=== PATIENT | female | born 1965 | race Caucasian/White ===

== ENCOUNTER → 2020-11-19 | Outpatient (CLI) | payer BC | END | disposition home or self-care (01) | LOC: LABWHC1 13:27 | PROVIDERS: ATTEND Psychiatry & Neurology Neurology | DX: Z01.812 Encounter for preprocedural laboratory examination (principal); Z20.822 Contact with and (suspected) exposure to COVID-19 | CPT/HCPCS: U0003; C9803; U0005 ==

== ENCOUNTER → 2021-04-19 | Outpatient (CLI) | payer MEDICARE ==
[2021-04-19 10:25] VITALS: BP 104/71; PULSE 69; RESP 16; TEMP 97.8
--- NOTE | 2021-04-19 11:10 | P.GSHP ---
History of Present Illness H&P Date: 04/19/21 Chief Complaint: implant rupture Regina is a 55 year old white female seen in consultation for Dr. Bowman regarding a right breast implant rupture. The patient had bilateral subpectoral silicone implants placed in [address] Schlutz. These were placed after her children. She initially had a breast lift, then had the implants placed approximately 8 years later. The patient states the left implant seemed to be lower. She is complaining of pain in the breast; skin sensitivity. She complains of pain in her upper back and wondering if it is related to the implants. She states it is very difficult to find any close distress secondary to the asymmetry of her breast. She saw her plastic surgeon who considered taking them out and replacing them. She has no history of any trauma or infection in her breast. She is not complaining of any lumps within her breast. Patient was diagnosed with fibromyalgia approximately 2 years ago, she wonders if this may be related to leaking breast implants. Caffeine: none nicotine: none, stopped 1987 chocolate: occasional hormones: none Family history: none Hormonal History: menarche: 15 , breast fed: no, age at first : 28 menopause: hysterectomy partial 43, done for bleeding BCP: 3 years hormones: none Surgical history: 1. Partial hysterectomy 2. Gastric Bypass lost 110 pounds 3. gallbladder 4. fusion 2016 of lower back 5. back stimulator for pain Medical history: 1. Thoracic back pain 2. 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 Social History: nicotine: none alcohol: wine twice a week drugs: none - Constitutional Constitutional: Denies chills, Denies fever - EENT Eyes: denies blurred vision, denies pain Ears: deny: decreased hearing, tinnitus Ears, nose, mouth and throat: Denies headache, Denies sore throat - Breasts Breasts: bilateral: as per HPI - Cardiovascular Cardiovascular: Denies chest pain, Denies shortness of breath - Respiratory Respiratory: Denies cough, Denies 7 - Gastrointestinal Gastrointestinal: Denies abdominal pain, Denies diarrhea, Denies nausea, Denies vomiting - Genitourinary (Female) Genitourinary: Denies dysuria, Denies hematuria - Menstruation Menstruation: Reports post hysterectomy - Musculoskeletal Comment: fibromyalgia Musculoskeletal: Reports as per HPI - Integumentary Integumentary: Denies pruritus, Denies rash - Neurological Neurological: Reports numbness, Reports weakness - Psychiatric Psychiatric: Denies anxiety, Denies depression - Endocrine Endocrine: Reports weight change, Denies fatigue - Hematologic/Lymphatic Comment: none - Allergic/Immunologic Allergic/Immunologic: Reports seasonal allergies Past Medical History History of Any Multi-Drug Resistant Organisms: None Reported Smoking Status: Former smoker Medications and Allergies Home Medications Medication Instructions Recorded Confirmed Type Dextroamphetamine/Amphetamine 5 mg PO DAILY PRN 04/19/21 04/19/21 History [Adderall] Dextroamphetamine/Amphetamine 30 mg PO DAILY 04/19/21 04/19/21 History [Adderall] oxyCODONE-APAP 10-325MG [Percocet 1 tab PO Q6HR PRN 04/19/21 04/19/21 History 10-325 mg] Allergies Allergy/AdvReac Type Severity Reaction Status Date / Time No Known Allergies Allergy Unverified 04/19/21 10:25 Surgical - Exam Vital Signs Temp Pulse Resp BP Pulse Ox 97.8 F 69 16 104/71 95 04/19/21 10:21 04/19/21 10:21 04/19/21 10:21 04/19/21 10:21 04/19/21 10:21 BMI 24.3 - General moderate distress - Eyes normal ocular movement - ENT no hearing loss, no congestion - Neck no masses, trachea midline - Respiratory normal respiratory effort, clear to auscultation - Cardiovascular Rhythm: regular Heart Sounds: normal: S1, S2 - Abdomen Abdomen: soft, non tender, no guarding, no rigid, no rebound - Integumentary normal turgor - Neurologic no disoriented, no combative - Psychiatric oriented to time, oriented to person, oriented to place, speech is normal, memory intact Breast Exam: BRA: 40C inspection: Right breast implant markedly higher than left breast implant/asymmetry of the breast related to probable left breast implant rupture Palpation: Right breast: Implant higher than left implant, multiple positional exam of the breast no dominant masses or nodules of concern Right axilla: No adenopathy of concern Left breast: No dominant masses or nodules of concern, implant not well palpated Left axilla: No adenopathy of concern Results Mammogram reviewed with Dr. Garcia from radiology, concern about right breast implant rupture Report from [facility] on revealed that the patient had undergone bilateral mammogram as well as ultrasound of the breast. In addition a computed tomography scan had been done and the report states that at least intracapsular rupture on the right was identified. The breast tissue was felt to be somewhat more difficult to evaluate secondary to the implants. Bilateral breast ultrasound revealed snowstorm appearance consistent with intracapsular rupture on the right, on the left implant demonstrated multiple echogenic lines anteriorly within the implant also consistent with intracapsular rupture No evidence of bilateral extra silicone outside of the implants. Assessment and Plan Assessment: Impression: 1. bilateral breast implants/ ? rupture 2. Asymmetry of the implants 3. Back stimulator in place question the patient may be able to have an MRI 4. Patient's last mammogram was approximately 1 year ago Plan: 1. Bilateral breast MRI if able to do secondary to the back implant stimulator 2. Patient would like to have the implants removed without any replaced 3. back pain was suitable related to the weight of the implants 4. Fairly recent diagnosis of fibromyalgia 5. Marked asymmetry of the breast related to left breast implant being lower than the right, this results in anxiety for the patient and inability to find close to fat Addendum: I have discussed breast MRI with Dr. Garcia from radiology at this point we are going to proceed with bilateral mammograms and possible CT of the chest to evaluate possible rupture. We will also obtain the CT films from [facility] from last year. Cc: Dr. Bowman
== END ==
LOC: WWCWWP 10:08
PROVIDERS: ATTEND Surgery
DX: N65.1 Disproportion of reconstructed breast (principal); M79.7 Fibromyalgia; N64.4 Mastodynia; Z87.891 Personal history of nicotine dependence; Z96.82 Presence of neurostimulator

== ENCOUNTER → 2021-05-15 | Outpatient (CLI) | payer MEDICARE ==
--- NOTE | 2021-05-15 11:02 | MM ---
Reason for exam: additional evaluation requested from prior study. Last mammogram was performed 1 year ago. History: Pre-pectoral silicone gel implants in both breasts, 2010. Took hormonal contraceptives for 6 years beginning at age 19. Physical Findings: Nurse did not find any significant physical abnormalities on exam. MG 3D Diag Mammo Imp W/Cad MALLORY Bilateral CC, MLO, and ID view(s) were taken. Prior study comparison: May 14, 2020, bilateral mammogram. There are scattered fibroglandular densities. Bilateral retropectoral silicone implants. Mammographically, they appear intact. No significant new findings when compared with previous films. These results were verbally communicated with the patient and result sheet given to the patient on 05/15/21. ASSESSMENT: Incomplete: need additional imaging evaluation, BI-RAD 0 RECOMMENDATION: Ultrasound of both breasts. (as ordered)
--- NOTE | 2021-05-15 11:04 | USB ---
Reason for exam: additional evaluation requested from abnormal screening. History: Pre-pectoral silicone gel implants in both breasts, 2010. Took hormonal contraceptives for 6 years beginning at age 19. US Breast BILAT Right complete breast ultrasound includes all four quadrants, the retroareolar region and axilla. Finding demonstrates no cystic or solid lesion seen. The right implant is heterogeneous with septations. We suspect an intracapsular rupture. No free silicone in seen. Left complete breast ultrasound includes all four quadrants, the retroareolar region and axilla. Finding demonstrates no cystic or solid lesion seen. These results were verbally communicated with the patient and result sheet given to the patient on 05/15/21. ASSESSMENT: Benign, BI-RAD 2 RECOMMENDATION: Follow-up diagnostic mammogram of both breasts in 1 year. Manage on a clinical basis with regard to any potential right intracapsular implant rupture.
== END | disposition home or self-care (01) ==
LOC: RADMAMWWP 09:09
PROVIDERS: ATTEND Surgery
DX: R92.8 Other abnormal and inconclusive findings on diagnostic imaging of breast (principal)
CPT/HCPCS: 77066; 76641; G0279; 77062

== ENCOUNTER → 2021-06-24 | Outpatient (CLI) | payer MEDICARE | END | disposition home or self-care (01) | LOC: LABWHC1 11:47 | PROVIDERS: ATTEND Psychiatry & Neurology Neurology | DX: Z01.812 Encounter for preprocedural laboratory examination (principal); Z20.822 Contact with and (suspected) exposure to COVID-19 | CPT/HCPCS: U0003; C9803 ==

== ENCOUNTER → 2021-07-04 | Outpatient (CLI) | payer MEDICARE ==
[2021-07-04 09:37] VITALS: BP 118/76; PULSE 111; RESP 20; TEMP 98.1
--- NOTE | 2021-07-04 09:51 | P.PN ---
Subjective Progress Note Date: 07/04/21 Principal diagnosis: implant rupture Regina is a 55 year old white female seen in consultation for Dr. Bowman regarding a right breast implant rupture. The patient had bilateral subpectoral silicone implants placed in [address] Schultz. These were placed after her children. She initially had a breast lift, then had the implants placed approximately 8 years later. The patient states the left implant seemed to be lower. She is complaining of pain in the breast; skin sensitivity. She complains of pain in her upper back and wondering if it is related to the implants. She states it is very difficult to find any close distress secondary to the asymmetry of her breast. She saw her plastic surgeon who considered taking them out and replacing them. She has no history of any trauma or infection in her breast. She is not complaining of any lumps within her breast. She had a bilateral mammogram on 05-15-21 and bilateral ultrasound was recommended. This showed the right implant heterogeneous with septations. An intracapsular rupture was suspected. No rupture was noted in the left implant. No parenchymal lesions of the breast were seen on the mammogram. Patient was diagnosed with fibromyalgia approximately 2 years ago, she wonders if this may be related to leaking breast implants. Caffeine: none nicotine: none, stopped 1987 chocolate: occasional hormones: none Family history: none Hormonal History: menarche: 15 , breast fed: no, age at first : 28 menopause: hysterectomy partial 43, done for bleeding BCP: 3 years hormones: none Surgical history: 1. Partial hysterectomy 2. Gastric Bypass lost 110 pounds 3. gallbladder 4. fusion 2016 of lower back 5. back stimulator for pain 6. wires in spinal transmitter replaced Medical history: 1. Thoracic back pain 2. 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 Social History: nicotine: none alcohol: wine twice a week drugs: none - Constitutional Constitutional: Denies chills, Denies fever - EENT Eyes: denies blurred vision, denies pain Ears: deny: decreased hearing, tinnitus Ears, nose, mouth and throat: Denies headache, Denies sore throat - Breasts Breasts: bilateral: as per HPI - Cardiovascular Cardiovascular: Denies chest pain, Denies shortness of breath - Respiratory Respiratory: Denies cough - Gastrointestinal Gastrointestinal: Denies abdominal pain, Denies diarrhea, Denies nausea, Denies vomiting - Genitourinary (Female) Genitourinary: Denies dysuria, Denies hematuria - Menstruation Menstruation: Reports post hysterectomy - Musculoskeletal Comment: fibromyalgia Musculoskeletal: Reports as per HPI - Integumentary Integumentary: Denies pruritus, Denies rash - Neurological Neurological: Reports numbness, Reports weakness - Psychiatric Psychiatric: Denies anxiety, Denies depression - Endocrine Endocrine: Reports weight change, Denies fatigue - Hematologic/Lymphatic Comment: none - Allergic/Immunologic Allergic/Immunologic: Reports seasonal allergies Objective - Constitutional General appearance: Present: cooperative - EENT Eyes: Present: EOMI ENT: Present: hearing grossly normal - Neck Neck: Present: normal ROM - Respiratory Respiratory: bilateral: CTA - Cardiovascular Rhythm: regular Heart sounds: normal: S1, S2 - Musculoskeletal Musculoskeletal: Present: gait normal - Psychiatric Psychiatric: Present: A&O x's 3, appropriate affect, intact judgment & insight - Additional findings Additional findings: Breast examination: Block: 40 mL Inspection: Right breast implant markedly higher than left implant/asymmetry of the breast related to probable implant rupture Palpation: Right breast: Implant higher than left, multiple positional exam no dominant masses or nodules of concern Right axilla: No adenopathy of concern Left breast dominant masses or nodules of concern implant not well palpated Left axilla: No adenopathy of concern Report from [place] on [id number] revealed that the patient had undergone bilateral mammogram as well as ultrasound of the breast. In addition a CAT scan had been done and the report stated that at least intracapsular rupture on the right was identified. The breast tissue was felt to be somewhat more difficult to evaluate secondary to the implants. Bilateral breast ultrasound revealed snowstorm appearance consistent with intracapsular rupture on the right, on the left implant demonstrated multiple echogenic lines anteriorly within the implant also consistent with intracapsular rupture. Assessment and Plan Assessment: Impression: 1. Bilateral implants with rupture of the leg demonstrated on most recent ult rasound, probable rupture of the left based on prior radiographic studies 2. Asymmetry of the implants 3. Back stimulator in place the patient had recent wires changed 4. Bilateral mammogram no parenchymal lesions of the breast Plan: 1. Removal of bilateral breast implants, removal of bilateral implant capsules 2. Patient is not interested in breast reconstruction 3. Marked asymmetry of the implants causing psychologic distress for the patient and making difficulty to find clothes that fit properly 4. Back pain which may be related to the weight of the implants 5. Fibromyalgia which may be related to the implants Risks and benefits of the procedure discussed with the patient. Risks include but are not limited to bleeding, infection, reaction to the anesthetic. The patient understands that she may have some decreased sensation to the nipple areolar complex bilateral. She understands this may or may not help with her back pain and may or may not help with her fibromyalgia. She wishes to proceed. CC: Dr. Bowman
== END ==
LOC: WWCWWP 09:25
PROVIDERS: ATTEND Surgery
DX: T85.49XA Other mechanical complication of breast prosthesis and implant, initial encounter (principal); Z98.84 Bariatric surgery status

== ENCOUNTER → 2021-09-06 | Outpatient (CLI) | payer MEDICARE ==
[2021-09-06 14:16] VITALS: BP 107/70; PULSE 90; RESP 16; TEMP 98.1
--- NOTE | 2021-09-06 14:38 | P.PN ---
Subjective Progress Note Date: 09/06/21 Principal diagnosis: Implant rupture Regina is a 56 year old white female seen in consultation for Dr. Bowman regarding a right breast implant rupture. The patient had bilateral subpectoral silicone implants placed in [address] Schultz. These were placed after her children were born. She initially had a breast lift, then had the implants placed approximately 8 years later. The patient states the left implant seemed to be lower. She is complaining of pain in the breast; skin sensitivity. She complains of pain in her upper back and wondering if it is related to the implants. She states it is very difficult to find any clothes to fit well. She is distressed secondary to the asymmetry of her breast. She saw her plastic surgeon who considered taking them out and replacing them. She has no history of any trauma or infection in her breast. She is not complaining of any lumps within her breast. She had a bilateral mammogram on 05-15-21 and bilateral ultrasound was recommended. This showed the right implant heterogeneous with septations. An intracapsular rupture was suspected. No rupture was noted in the left implant. No parenchymal lesions of the breast were seen on the mammogram. Patient was diagnosed with fibromyalgia approximately 2 years ago, she wonders if this may be related to leaking breast implants. Caffeine: none nicotine: none, stopped 1987 chocolate: occasional hormones: none Family history: none Hormonal History: menarche: 15 , breast fed: no, age at first : 28 menopause: hysterectomy partial 43, done for bleeding BCP: 3 years hormones: none Surgical history: 1. Partial hysterectomy 2. Gastric Bypass lost 110 pounds 3. gallbladder 4. fusion 2016 of lower back 5. back stimulator for pain 6. 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 Thoracic back pain 2. 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 Social History: nicotine: none alcohol: wine twice a week drugs: none - Constitutional Constitutional: Denies chills, Denies fever - EENT Eyes: denies blurred vision, denies pain Ears: deny: decreased hearing, tinnitus Ears, nose, mouth and throat: Denies headache, Denies sore throat - Breasts Breasts: bilateral: as per HPI - Cardiovascular Cardiovascular: Denies chest pain, Denies shortness of breath - Respiratory Respiratory: Denies cough - Gastrointestinal Gastrointestinal: Denies abdominal pain, Denies diarrhea, Denies nausea, Denies vomiting - Genitourinary (Female) Genitourinary: Denies dysuria, Denies hematuria - Menstruation Menstruation: Reports post hysterectomy - Musculoskeletal Comment: fibromyalgia Musculoskeletal: Reports as per HPI - Integumentary Integumentary: Denies pruritus, Denies rash - Neurological Neurological: Reports numbness, Reports weakness - Psychiatric Psychiatric: Denies anxiety, Denies depression - Endocrine Endocrine: Reports weight change, Denies fatigue - Hematologic/Lymphatic Comment: none - Allergic/Immunologic Allergic/Immunologic: Reports seasonal allergies Objective - Vital Signs Vital signs: Vital Signs Temp 98.1 F 09/06/21 14:11 Pulse 90 09/06/21 14:11 Resp 16 09/06/21 14:11 BP 107/70 09/06/21 14:11 Pulse Ox Intake & Output 09/05/21 09/06/21 09/06/21 18:59 06:59 18:59 Weight 70.307 kg - Exam BMI 25 - Constitutional General appearance: Present: cooperative - EENT Eyes: Present: EOMI ENT: Present: hearing grossly normal - Neck Neck: Present: normal ROM - Respiratory Respiratory: bilateral: CTA - Cardiovascular Rhythm: regular Heart sounds: normal: S1, S2 - Gastrointestinal General gastrointestinal: Present: soft - Integumentary Integumentary: Present: normal turgor - Musculoskeletal Musculoskeletal: Present: gait normal - Psychiatric Psychiatric: Present: A&O x's 3, appropriate affect, intact judgment & insight - Additional findings Additional findings: Breast examination: Bra: 40D Inspection: Right breast implant markedly higher than left implant/asymmetry of the breast related to probable implant rupture Palpation: Right breast: Implant higher than left, multiple positional exam no dominant masses or nodules of concern Right axilla: No adenopathy of concern Left breast: no dominant masses or nodules of concern implant not well palpated Left axilla: No adenopathy [place] [id number] revealed that the patient had undergone bilateral mammogram as well as ultrasound of the breast. In addition a CAT scan had been done and the report stated that at least intracapsular rupture on the right was identified. The breast tissue was felt to be somewhat more difficult to evaluate secondary to the implants. Bilateral breast ultrasound revealed snowstorm appearance consistent with intracapsular rupture on the right, on the left implant demonstrated multiple echogenic lines anteriorly within the implant also consistent with intracapsular rupture. Assessment and Plan Assessment: Assessment and Plan Assessment: Impression: 1. Bilateral implants with rupture of the leg demonstrated on most recent ultrasound, probable rupture of the left based on prior radiographic studies 2. Asymmetry of the implants 3. Back stimulator in place the patient had recent wires changed 4. Bilateral mammogram no parenchymal lesions of the breast Plan: 1. Removal of bilateral breast implants, removal of bilateral implant capsules 2. Patient is not interested in breast reconstruction 3. Marked asymmetry of the implants causing psychologic distress for the patient and making difficulty to find clothes that fit properly 4. Back pain which may be related to the weight of the implants 5. Fibromyalgia which may be related to the implants 6. clearance from neurology Dr. Ochoa Risks and benefits of the procedure discussed with the patient. Risks include but are not limited to bleeding, infection, reaction to the anesthetic. The patient understands that she may have some decreased sensation to the nipple areolar complex bilateral. She understands this may or may not help with her back pain and may or may not help with her fibromyalgia. She also understands that she will continue to be asymmetric with the right breast being smaller than the left breast. She wishes to proceed. She did see a plastic surgeon and declined from having the plastic surgeon to the procedure. CC: Dr. Bowman Additional CC's:
== END ==
LOC: WWCWWP 14:05
PROVIDERS: ATTEND Surgery
DX: T85.41XA Breakdown (mechanical) of breast prosthesis and implant, initial encounter (principal); Z96.82 Presence of neurostimulator

== ENCOUNTER 2021-09-17 07:35 | Day surgery (SDC) | payer MEDICARE ==
[2021-09-11 12:06] VITALS: BMI 24.2
[~2021-09-17 07:35] MED LIST: DEXAMETHASONE SOD PHOSPHATE 4 MG/ML 1 ML VIAL IV ONE; HEPARIN SODIUM,PORCINE/PF 5,000 UNIT/0.5 ML SYRINGE SQ PRN; LACTATED RINGERS 1,000 ML IV SCH; ONDANSETRON 4 MG/2 ML VIAL IVP ONE; Pre Op ABX Message 1 EACH MISC MISCELLANE ONE
[2021-09-17] MEDS ORDERED: ROCURONIUM 10 MG/ML (5 ML VIAL) IV ONE (08:45)
[2021-09-17] MEDS ORDERED: GLYCOPYRROLATE 0.2 MG/ML 2 ML VIAL ONE (08:45)
[2021-09-17] MEDS ORDERED: SUCCINYLCHOLINE CHLORIDE 100 MG/5 ML SYR IV ONE (08:45)
[2021-09-17] MEDS ORDERED: fentaNYL (PF) 50 MCG/ML 2 ML AMP ONE (08:45)
[2021-09-17] MEDS ORDERED: MIDAZOLAM 2 MG/2 ML VIAL ONE (08:45)
[2021-09-17] MEDS ORDERED: PROPOFOL 10 MG/ML 20 ML VIAL IV ONE (08:45)
[2021-09-17] MEDS ORDERED: HYDROmorphone (PF) 1 MG/ML ONE (08:45)
[2021-09-17] MEDS ORDERED: LIDOCAINE 1% INJ 10MG/ML (20 ML MDV) ONE (08:45)
[2021-09-17] MEDS ORDERED: NEOSTIGMINE 1 MG/ML 10 ML VIAL ONE (08:45)
[2021-09-17] MEDS ORDERED: LACTATED RINGERS 1,000 ML IV ONE (11:23)
--- NOTE | 2021-09-17 11:31 | P.OP ---
Date of Procedure: 09/17/21 Preoperative Diagnosis: Ruptured subpectoral implant/asymmetry of the implants Postoperative Diagnosis: Same Procedure(s) Performed: Removal of bilateral breast implants/bilateral capsule removal Anesthesia: FREDIS Surgeon: Maliha García Estimated Blood Loss (ml): 35 IV fluids (ml): 900 Pathology: other (Removal of bilateral breast implants and capsules) Condition: stable Disposition: same day Indications for Procedure: Ruptured breast implant asymmetry of implants Operative Findings: Ruptured right breast implant/thickened capsule, bilateral implants and capsules Description of Procedure: The patient is a 56-year-old white female with symptomatic breast implants and felt to be rupture of one side. The patient wished for implant removal. The patient was brought to the operative suite. Following induction of anesthesia the right breast was approached initially. A prior reduction mammoplasty and the inferior limb of the incision was utilized. This was carried down through the subcutaneous tissue to the muscle. The muscle was spread and the capsule of the implant was identified. Dissection was performed of this capsule. The capsule was entered and there was gooey material which was present in the capsular space. It was felt that there is the most likely a rupture of the implant and this was contained within the capsule. Careful dissection was performed to remove the remainder of the capsule, as well as residual implant. The wound was well irrigated. Surgicel in powder form was placed. After we were assured that hemostasis was attained a ADALBERTO drain was placed. The deep tissues were closed using 3-0 Vicryl suture. The skin was reapproximated using 3-0 Vicryl suture followed by a 4-0 Monocryl. The drain was secured using a nylon Suture. The left side was approached. Gloves were changed. An incision was made in the vertical. This was carried down to the subcutaneous tissue to the muscle. This was in the capsule the implant was identified. Dissection was performed around the capsule. The capsule was entered at one point the implant on the left did not appear to have been ruptured and was extruded without difficulty. The capsule was then resected. The wound was well irrigated. Surgicel and pelvis was placed. A ADALBERTO drain was placed. Deep tissues were closed using 3-0 Vicryl suture. The skin was closed using a 4-0 Monocryl. This was followed by a nylon drain suture. The patient tolerated the procedure in stable condition. All instrument and sponge counts were correct at the end of the case.
--- NOTE | 2021-09-17 11:33 | P.DS ---
Providers Attending physician: Maliah García Primary care physician: Lana Bowman Plan - Discharge Summary Discharge Rx Participant: No New Discharge Prescriptions: No Action Dextroamphetamine/Amphetamine [Adderall] 30 mg PO DAILY oxyCODONE-APAP 10-325MG [Percocet 10-325 mg] 1 tab PO Q6HR PRN PRN Reason: Pain Ibuprofen [Motrin] 400 mg PO Q6HR PRN PRN Reason: Pain Dextroamphetamine/Amphetamine [Adderall] 5 mg PO DAILY PRN PRN Reason: Agitation Discharge Medication List Dextroamphetamine/Amphetamine [Adderall] 5 mg PO DAILY PRN 04/19/21 [History] Dextroamphetamine/Amphetamine [Adderall] 30 mg PO DAILY 04/19/21 [History] oxyCODONE-APAP 10-325MG [Percocet 10-325 mg] 1 tab PO Q6HR PRN 04/19/21 [History] Ibuprofen [Motrin] 400 mg PO Q6HR PRN 09/11/21 [History] Follow up Appointment(s)/Referral(s): Maliha García MD [STAFF PHYSICIAN] - 1 Week Activity/Diet/Wound Care/Special Instructions: Do not drive if taking narcotic pain medication May shower after [address] for at least 24 hours from discharge Teach patient drain care, drain and record each side every 24 hours and as needed Discharge Disposition: HOME SELF-CARE
[2021-09-17 11:41] VITALS: TEMP 97
[2021-09-17] MEDS: HYDROmorphone 0.5 MG/0.5 ML SYRINGE IVP PRN ×2 (11:52→12:13)
[2021-09-17] MEDS ORDERED: oxyCODONE-APAP 10-325MG 1 EACH TAB PO STA (13:07)
[2021-09-17 14:32] VITALS: BP 101/60; PULSE 79; RESP 14
== END 2021-09-17 14:10 | disposition home or self-care (01) ==
LOC: OR 07:35
PROVIDERS: ATTEND Surgery
DX: T85.898A Other specified complication of other internal prosthetic devices, implants and grafts, initial encounter (principal); Z79.1 Long term (current) use of non-steroidal anti-inflammatories (NSAID); Z79.891 Long term (current) use of opiate analgesic; Z79.899 Other long term (current) drug therapy; Z98.84 Bariatric surgery status; Z90.49 Acquired absence of other specified parts of digestive tract; Z90.710 Acquired absence of both cervix and uterus; Z98.890 Other specified postprocedural states
CPT/HCPCS: 88305; 88300; 19330; J2250; J1100; J2710; J0690; J2405; J2001; J3010; J1170 ×2; J0330; J2704; J1644

== ENCOUNTER → 2021-09-24 | Outpatient (CLI) | payer MEDICARE ==
[2021-09-24 15:24] LABS: Basophils % (A) 0 %; Eosinophils # (A) 0.5 k/uL (0-0.7); Eosinophils % (A) 4 %; HCT 41.4 % (34.0-46.0); HGB 13.1 gm/dL (11.4-16.0); Lymphocytes # (A) 1.9 k/uL (1.0-4.8); Lymphocytes % (A) 17 %; MCH 34.2 pg (25.0-35.0); MCHC 31.6 g/dL (31.0-37.0); MCV 108.3 fL (80.0-100.0); Macrocytosis Moderate; Mean Platelet Volume 6.9; Monocytes # (A) 0.5 k/uL (0-1.0); Monocytes % (A) 5 %; Neutrophils % (A) 73 %; Platelet Count 384 k/uL (150-450); RBC 3.82 m/uL (3.80-5.40); RDW 12.7 % (11.5-15.5)
[2021-09-24 16:33] VITALS: BP 109/69; PULSE 85; RESP 18; TEMP 98.3
--- NOTE | 2021-09-24 16:55 | P.PN ---
Progress Note - Text Progress Note Date: 09/24/21 Regina is a 56-year-old white female status post resection of bilateral breast implants and capsulectomies on . She States That She Has Decreased Joint Discomfort since Removal of the Implants. Pathology Revealed Reactive Fibroembranous Capsular Tissue Right Most Likely Implant Material Present. Right Breast Implant: Ruptured Implant Left Breast Implant: Benign Fibrous Capsular Tissue with Mild Inflammation Implant Ruptured Grossly. Post Procedure She Did Well until Several Days Ago When She Stated She Had Increased Discomfort near the Drain Sites. Additionally She Developed Some Erythema near the Area of Tape on Both Breasts. She Presents Today for Evaluation. On Examination She Is Afebrile Lungs: Clear Heart: Regular Rate and Rhythm Bilateral Erythema Lower Aspects of the Breast with the Greatest Reaction Apparent near the Incision Line near Steri-Strips ADALBERTO Output Bilateral Serous in Nature No Evidence of Any Infection CBC was obtained and white count was noted to be 11 Bilateral breast ultrasounds were performed and no evidence of any abscess or infection and the breast was identified Impression: Questionable bilateral cellulitis/erythema of the lower aspects of the breast versus ALLERGIC reaction to the tape Plan: Patient was given the option of admission with IV antibiotic therapy and infectious disease consultation, she declined this and has agreed to outpatient infectious disease and dermatology consultation. She was given a prescription for Keflex and is to call if she has any questions or concerns. Patient will follow up on CC: Dr. Lana Bowman
--- NOTE | 2021-09-25 09:08 | USB ---
Reason for exam: clinical finding. History: Pre-pectoral silicone gel implants in both breasts, 2010. Took hormonal contraceptives for 6 years beginning at age 19. Physical Findings: Breast exam performed by Dr. García. US Breast BILAT Right complete breast ultrasound includes all four quadrants, the retroareolar region and axilla. Finding demonstrates including area of concern. Left complete breast ultrasound includes all four quadrants, the retroareolar region and axilla. Finding demonstrates no cystic or solid lesion seen. These results were verbally communicated with the patient and result sheet given to the patient on 09/24/21. ASSESSMENT: Negative, BI-RAD 1 RECOMMENDATION: Clinical management of both breasts. Manage patient on a clinical basis.
== END ==
LOC: WWCWWP 12:00
PROVIDERS: ATTEND Surgery
DX: L76.82 Other postprocedural complications of skin and subcutaneous tissue (principal)
CPT/HCPCS: 36415; 85025

== ENCOUNTER → 2021-09-26 | Outpatient (CLI) | payer MEDICARE ==
--- NOTE | 2021-09-26 09:48 | P.PN ---
Progress Note - Text Progress Note Date: 09/26/21 Regina is a 56-year-old white female status post resection of bilateral breast implants and capsulectomies on . She States That she Has Decreased Joint Discomfort since Removal of the Implants. Pathology Revealed Reactive Fibroembranous Capsular Tissue Right Most Likely Implant Material Present. She was seen 2 days ago and was seen again this morning regarding the erythema/itching of the inferior bilateral breasts. She also complains of pain in the right lateral inferior breast. She has not had any fever or chills. She has an appointment with dermatology this morning. Right Breast Implant: Ruptured Implant Left Breast Implant: Benign Fibrous Capsular Tissue with Mild Inflammation Implant Ruptured Grossly. Post Procedure She Did Well until Several Days Ago When She Stated She Had Increased Discomfort near the Drain Sites. Additionally She Developed Some Erythema near the Area of Tape on Both Breasts. She Presents Today for Evaluation. On Examination She Is Afebrile Lungs: Clear Heart: Regular Rate and Rhythm Bilateral Erythema Lower Aspects of the Breast with the Greatest Reaction Apparent near the Incision Line near Steri-Strips previous site. These have been removed and the erythema has decreased remarkably. She has what appears to be fungal infection under both breast ADALBERTO Output Bilateral Serous in Nature No Evidence of Any Infection ADALBERTO right breast is approximately 100 mL for 24 hour period ADALBERTO left breast 50-45 mL per 24-hour period CBC was obtained and white count was noted to be 11 on 09-24-21 Bilateral breast ultrasounds were performed and no evidence of any abscess or infection and the breast was identified on 09-24-21 Impression/Plan: Questionable bilateral cellulitis/erythema of the lower aspects of the breast versus ALLERGIC reaction to the tape; good response removal of Steri-Strips and antibiotics Continue antibiotics Appointment with dermatology nystatin under breast CC: Dr. Bowman
[2021-09-26 09:55] VITALS: RESP 18; TEMP 97.7
== END ==
LOC: WWCWWP 09:29
PROVIDERS: ATTEND Surgery
DX: Z48.02 Encounter for removal of sutures (principal); Z98.82 Breast implant status; Z91.048 Other nonmedicinal substance allergy status

== ENCOUNTER → 2021-09-27 | Outpatient (CLI) | payer MEDICARE ==
--- NOTE | 2021-09-27 12:53 | P.PN ---
Progress Note - Text Progress Note Date: 09/27/21 Regina is a 56-year-old white female status post resection of bilateral breast implants and capsulectomies on . She States That she Has Decreased Joint Discomfort since Removal of the Implants. Pathology Revealed Reactive Fibroembranous Capsular Tissue Right Most Likely Implant Material Present. She was seen 2 days ago and was seen again this morning regarding the erythema/itching of the inferior bilateral breasts. She also complains of pain in the right lateral inferior breast. She has not had any fever or chills. She has an appointment with dermatology this morning. Right Breast Implant: Ruptured Implant Left Breast Implant: Benign Fibrous Capsular Tissue with Mild Inflammation Implant Ruptured Grossly. Post Procedure She Did Well until Several Days Ago When She Stated She Had Increased Discomfort near the Drain Sites. Additionally She Developed Some Erythema near the Area of Tape on Both Breasts. She Presents Today for Evaluation. 09-27-21 The patient was seen by dermatology on 2321 and given a steroid injection as well as betamethasone 0.5% cream and antihistamine and Zyrtec. Was thought she was having an ALLERGIC reaction and did not think she had infection. The output from the left ADALBERTO drain is approximately 40 mL a day for several days in a row an d that is going to be removed. The apical from the right ADALBERTO drain has decreased but is still felt to be best to keep this in place. On Examination She Is Afebrile Lungs: Clear Heart: Regular Rate and Rhythm Bilateral lower breast erythema decreased ADALBERTO Output Bilateral Serous in Nature No Evidence of Any Infection ADALBERTO right breast is approximately 45 mL for 24 hour period ADALBERTO left breast 50-45 mL per 24-hour period for several days CBC was obtained and white count was noted to be 11 on 09-24-21 Bilateral breast ultrasounds were performed and no evidence of any abscess or infection and the breast was identified on 09-24-21 Patient seen by dermatology felt that there was no evidence of infection, she was given a steroid injection, but a methicillin cream, Zyrtec, and antihistamine Impression/Plan: Questionable bilateral cellulitis/erythema of the lower aspects of the breast versus ALLERGIC reaction to the tape; good response removal of Steri-Strips and antibiotics Continue antibiotics Appointment with dermatology recommendation noted follow up next week for removal of right ADALBERTO drain
== END ==
LOC: WWCWWP 12:22
PROVIDERS: ATTEND Surgery
DX: L76.82 Other postprocedural complications of skin and subcutaneous tissue (principal); Z91.048 Other nonmedicinal substance allergy status